=== PATIENT | female | born 1970 | race Caucasian/White ===

== ENCOUNTER 2021-02-22 18:14 | Emergency (ER) | payer OTHER ==
[2021-02-22] MEDS ORDERED: Cyclobenzaprine 10 MG TAB ONE (18:29)
[2021-02-22] MEDS ORDERED: Ketorolac Tromethamine 60 MG/2 ML VIAL ONE (18:29)
== END 2021-02-22 18:36 | disposition home or self-care (01) ==
LOC: BURERS 18:14
DX: S16.1XXA Strain of muscle, fascia and tendon at neck level, initial encounter (principal); S39.012A Strain of muscle, fascia and tendon of lower back, initial encounter; S29.012A Strain of muscle and tendon of back wall of thorax, initial encounter; Z87.891 Personal history of nicotine dependence; V89.2XXA Person injured in unspecified motor-vehicle accident, traffic, initial encounter
CPT/HCPCS: 96372; 99283; J1885

== ENCOUNTER 2021-02-27 14:12 | Outpatient (CLI) | payer OTHER | END 2021-02-27 14:13 | disposition home or self-care (01) | LOC: BURRAD 14:12 | PROVIDERS: ATTEND Family Medicine | DX: S39.012A Strain of muscle, fascia and tendon of lower back, initial encounter (principal); M51.36 Other intervertebral disc degeneration, lumbar region; M41.9 Scoliosis, unspecified; K59.00 Constipation, unspecified; Z98.1 Arthrodesis status; V87.7XXA Person injured in collision between other specified motor vehicles (traffic), initial encounter | CPT/HCPCS: 72110 ==

== ENCOUNTER 2021-03-07 11:13 | Outpatient (CLI) | payer OTHER | END 2021-03-07 11:14 | disposition home or self-care (01) | LOC: BURRAD 11:13 | PROVIDERS: ATTEND Family Medicine | DX: S16.1XXA Strain of muscle, fascia and tendon at neck level, initial encounter (principal); M50.323 Other cervical disc degeneration at C6-C7 level; V87.7XXA Person injured in collision between other specified motor vehicles (traffic), initial encounter | CPT/HCPCS: 72040 ==

== ENCOUNTER 2021-08-27 17:06 | Emergency (ER) | payer OTHER ==
[2021-08-27] MEDS ORDERED: Morphine 10 MG/ML VIAL ONE (18:31)
[2021-08-27] MEDS ORDERED: Boostrix 0.5 ML (Tdap) VIAL ONE (18:57)
[2021-08-27] MEDS ORDERED: Morphine 4 MG/ML VIAL ONE (19:32)
[2021-08-27] MEDS ORDERED: Lidocaine 1% w/Epinephrine 1:100K 20 ML VIAL ONE (19:32)
[2021-08-27] MEDS ORDERED: Clindamycin 150 MG CAP ONE (21:48)
[2021-08-27] MEDS ORDERED: Doxycycline 100 MG CAP ONE (21:48)
[2021-08-27] MEDS ORDERED: Bacitracin 1 PK ONE (21:53)
== END 2021-08-27 22:03 | disposition home or self-care (01) ==
LOC: BURERS 17:06
DX: S41.112A Laceration without foreign body of left upper arm, initial encounter (principal); W54.0XXA Bitten by dog, initial encounter; Z87.891 Personal history of nicotine dependence; Z23 Encounter for immunization
CPT/HCPCS: 90471; 90715; 96372; J2270

== ENCOUNTER 2021-12-12 10:50 | Outpatient (CLI) | payer OTHER | END 2021-12-12 10:51 | disposition home or self-care (01) | LOC: BURRAD 10:50 | PROVIDERS: ATTEND Family Medicine | DX: S29.012A Strain of muscle and tendon of back wall of thorax, initial encounter (principal); M47.812 Spondylosis without myelopathy or radiculopathy, cervical region; M47.814 Spondylosis without myelopathy or radiculopathy, thoracic region | CPT/HCPCS: 72072 ==

== ENCOUNTER 2022-09-23 01:51 | Emergency (ER) | payer OTHER ==
[2022-09-23] MEDS ORDERED: Morphine 10 MG/ML VIAL ONE (02:15)
== END 2022-09-23 02:33 | disposition home or self-care (01) ==
LOC: BURERS 01:51
DX: M54.2 Cervicalgia (principal); Z87.891 Personal history of nicotine dependence
CPT/HCPCS: 96372; 99283; J2270